=== PATIENT | female | born 1945 | race Caucasian/White ===

== ENCOUNTER 2017-02-27 03:25 | Emergency (ER) | payer MEDICARE ==
[~2017-02-27] VITALS: Ht 162.6 cm; Wt 56.2 kg
[2017-02-27 03:36] VITALS: BP 160/88
[2017-02-27] MEDS ORDERED: HYDR-971 PO (04:29)
--- NOTE | 2017-02-27 04:29 | PHYS DOC ---
Past Medical History Past Medical History: Other Additional Past Medical Histor: CELIAC DISEASE Past Surgical History: Cholecystectomy Alcohol Use: None Drug Use: Marijuana Adult General Chief Complaint Chief Complaint: HIP PAIN [facility] HPI Patient is a 71 year old female who presents with complaint of left hip pain for the past 2 days. The patient states that she accidentally slipped and fell into her bathtub, striking her left hip 2 days ago. Patient states that she was able to ambulate immediately after the injury. Patient states over the past 2 days she has been having worsening tightness and pain. Patient states she's been taking Naprosyn to try to help with symptoms with no significant relief. Patient rates her pain as 7 out of 10 on my examination. Patient states that the pain is located along the posterior lateral aspect of left hip close to her sacrum. Patient denies any other injuries. The patient states that she has pain when she fully extends out her left leg but states that she has normal range of motion in her left hip. Review of Systems Review of Systems Constitutional: Denies fever or chills [] Eyes: Denies change in visual acuity, redness, or eye pain [] HENT: Denies nasal congestion or sore throat [] Respiratory: Denies cough or shortness of breath [] Cardiovascular: No additional information not addressed in HPI [] GI: Denies abdominal pain, nausea, vomiting, bloody stools or diarrhea [] : Denies dysuria or hematuria [] Musculoskeletal: Left hip pain [] Integument: Denies rash or skin lesions [] Neurologic: Denies headache, focal weakness or sensory changes [] Allergies Allergies Allergies Coded Allergies Type Severity Reaction Last Updated Verified No Known Drug Allergies 02/27/17 No Physical Exam Physical Exam Constitutional: Well developed, well nourished, no acute distress, non-toxic appearance. [] HENT: Normocephalic, atraumatic, bilateral external ears normal, oropharynx moist, no oral exudates, nose normal. [] Eyes: PERRLA, EOMI, conjunctiva normal, no discharge. [] Neck: Normal range of motion, no tenderness, supple, no stridor. [] Cardiovascular:Heart rate regular rhythm, no murmur [] Lungs & Thorax: Bilateral breath sounds clear to auscultation [] Abdomen: Bowel sounds normal, soft, no tenderness, no masses, no pulsatile masses. [] Skin: Warm, dry, no erythema, no rash. [] Back: No tenderness, no CVA tenderness. [] Extremities: Left posterior lateral pelvic tenderness along the iliac crest near the sacroiliac junction, no cyanosis, no clubbing, ROM intact, no edema. [ ] Neurologic: Alert and oriented X 3, normal motor function, normal sensory function, no focal deficits noted. [] Current Patient Data Vital Signs Vital Signs Date Time Temp Pulse Resp B/P (MAP) Pulse Ox O2 Delivery O2 Flow Rate FiO2 02/27/17 03:36 98.3 83 18 160/88 (112) 98 Room Air 98.3 EKG EKG Not performed [] Radiology/Procedures Radiology/Procedures Not performed [] Course & Med Decision Making Course & Med Decision Making Pertinent Labs and Imaging studies reviewed. (See chart for details) The patient's symptoms appear consistent with bony contusion of the iliac crest. The patient has normal weightbearing. I have low suspicion for a fracture and thus do not feel that x-rays are indicated at this time. Patient treated with [place] in the emergency department. The patient will be provided with prescription for [place] to improve pain control at home. Advised follow-up in 7-10 days a primary doctor if symptoms are not resolving and return to emergency department for any worsening symptoms. Patient voiced understanding and in agreement with treatment plan. Dragon Disclaimer Dragon Disclaimer This electronic medical record was generated, in whole or in part, using a voice recognition dictation system. Departure Departure Impression: Primary Impression: Contusion of iliac crest Disposition: HOME, SELF-CARE Condition: IMPROVED Referrals: PARAG COLE MD (PCP) Patient Instructions: Contusion Additional Instructions: Follow-up with your primary doctor in 7-10 days of symptoms are not improving. Return to the emergency department for any worsening symptoms. Scripts Hydrocodone/Apap 5-325 (NORCO 5-325 TABLET) 1 Each Tablet 1-2 TAB PO Q4-6HRS, #20 TAB Prov: VASYL TAYLOR MD 02/27/17 Problem Qualifiers Primary Impression: Contusion of iliac crest Encounter type: initial encounter Qualified Codes: S30.1XXA - Contusion of abdominal wall, initial encounter VASYL TAYLOR MD Feb 27, 2017 04:29
[2017-02-27] MEDS ORDERED: HYDROcodone/APAP 5/325MG 1 TAB TABLET PO ONE (04:45)
== END 2017-02-27 04:37 | disposition home or self-care (01) ==
LOC: ER 03:25
DX: S30.1XXA Contusion of abdominal wall, initial encounter (principal); Z90.49 Acquired absence of other specified parts of digestive tract; W18.2XXA Fall in (into) shower or empty bathtub, initial encounter; Y93.89 Activity, other specified; Y99.8 Other external cause status; Y92.89 Other specified places as the place of occurrence of the external cause
CPT/HCPCS: 99284

== ENCOUNTER 2018-01-01 21:16 | Emergency (ER) | payer MEDICARE ==
[2018-01-01] MEDS: HYDROcodone/APAP 5/325MG 1 TAB TABLET PO (22:12)
== END 2018-01-01 23:29 | disposition home or self-care (01) ==
LOC: ER 21:16
DX: S22.31XA Fracture of one rib, right side, initial encounter for closed fracture (principal); F12.10 Cannabis abuse, uncomplicated; Z79.899 Other long term (current) drug therapy; Z90.49 Acquired absence of other specified parts of digestive tract; W01.198A Fall on same level from slipping, tripping and stumbling with subsequent striking against other object, initial encounter; Y93.89 Activity, other specified; Y92.89 Other specified places as the place of occurrence of the external cause; Y99.8 Other external cause status
CPT/HCPCS: 71101; 99284; G0238

== ENCOUNTER 2018-04-03 10:34 | Emergency (ER) | payer MEDICARE ==
[~2018-04-03] VITALS: Ht 162.6 cm; Wt 53.5 kg
[~2018-04-03 10:34] MED LIST: HYDR-971 PO; IBUP-1007 PO
[2018-04-03] MEDS ORDERED: DEXAMETHASONE SOD PHOS 20 MG/5 ML VIAL. IV ONE (11:00)
[2018-04-03] MEDS ORDERED: IV NORMAL SALINE 1000ML BAG 1,000 ML IV ONE (11:00)
[2018-04-03] MEDS ORDERED: IPRATRPIUM/ALBUTEROL 0.5/2.5MG 3 ML NEBU. NEB ONE (11:00)
--- NOTE | 2018-04-03 11:16 | EKG ---
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
[2018-04-03 11:26] LABS: BASO # 0.1 x10^3/uL (0.0-0.2); BASO % 1 % (0-3); EOS # 0.3 x10^3/uL (0.0-0.7); EOS % 4 % (0-3); HEMATOCRIT 45.9 % (36.0-47.0); HEMOGLOBIN 15.7 g/dL (12.0-15.5); LYMPH # 1.2 x10^3/uL (1.0-4.8); LYMPH % 14 % (24-48); MEAN CORPUSCULAR HEMOGLOBIN 31 pg (25-35); MEAN CORPUSCULAR HGB CONC 34 g/dL (31-37); MEAN CORPUSCULAR VOLUME 90 fL (79-100); MONO # 0.7 x10^3/uL (0.0-1.1); MONO % 7 % (0-9); NEUT # 6.5 x10^3uL (1.8-7.7); NEUT % 74 % (31-73); PLATELET COUNT 291 x10^3/uL (140-400); RED BLOOD COUNT 5.08 x10^6/uL (3.50-5.40); RED CELL DISTRIBUTION WIDTH 15.5 % (11.5-14.5); WHITE BLOOD COUNT 8.8 x10^3/uL (4.0-11.0)
[2018-04-03 11:48] LABS: ALBUMIN 3.3 g/dL (3.4-5.0); ALBUMIN/GLOBULIN RATIO 0.8 (1.0-1.7); CREATININE 1.2 mg/dL (0.6-1.0); GFR 44.2; TOTAL BILIRUBIN 0.8 mg/dL (0.2-1.0); TOTAL PROTEIN 7.4 g/dL (6.4-8.2)
[2018-04-03 11:55] LABS: POTASSIUM 2.9 mmol/L (3.5-5.1)
--- NOTE | 2018-04-03 12:18 | RAD ---
Examination: CHEST PA LATERAL History: COUGH, SHORT OF BREATH, DOESN'T FEEL WELL Comparison/Correlation: None Findings: PA and lateral views of chest were obtained. Heart size and pulmonary vasculature are normal. No infiltrate or pleural effusion. No pneumothorax. Borderline pulmonary hyperinflation evident. Left fifth rib fracture posterolaterally is present but of indeterminate age. Impression: No infiltrate. Borderline pulmonary hyperinflation. Correlate for possibility of COPD. Electronically signed by: Arsh Zuleta MD (04/03/2018 12:14 PM) [id number]
[2018-04-03] MEDS ORDERED: POTASSIUM CHLORIDE 20 MEQ TABLET.ER. PO ONE (13:15)
[2018-04-03] MEDS ORDERED: POTA20TA82 PO (13:29)
[2018-04-03] MEDS ORDERED: PRED20TA PO (13:29)
--- NOTE | 2018-04-03 13:29 | PHYS DOC ---
Past Medical History Past Medical History: Anxiety, Asthma, Dementia, Other Additional Past Medical Histor: CELIAC DISEASE,FALL/RIB FX'S Past Surgical History: Cholecystectomy Alcohol Use: None Drug Use: Marijuana Adult General Chief Complaint Chief Complaint: SHORTNESS OF BREATH HPI HPI Patient is a 73 year old [f__sex] who presents with [] Review of Systems Review of Systems Constitutional: Denies fever or chills [] Eyes: Denies change in visual acuity, redness, or eye pain [] HENT: Denies nasal congestion or sore throat [] Respiratory: Denies cough or shortness of breath [] Cardiovascular: No additional information not addressed in HPI [] GI: Denies abdominal pain, nausea, vomiting, bloody stools or diarrhea [] : Denies dysuria or hematuria [] Musculoskeletal: Denies back pain or joint pain [] Integument: Denies rash or skin lesions [] Neurologic: Denies headache, focal weakness or sensory changes [] Endocrine: Denies polyuria or polydipsia [] All other systems were reviewed and found to be within normal limits, except as documented in this note. Current Medications Current Medications Current Medications Medications (Trade) Dose Ordered Sig/Ambrose Start Time Stop Time Status Last Admin Dose Admin Albuterol/ Ipratropium (Duoneb) 3 ml 1X ONCE 04/03/18 11:00 04/03/18 11:03 DC 04/03/18 11:17 3 ML Dexamethasone Sodium Phosphate (Decadron) 10 mg 1X ONCE 04/03/18 11:00 04/03/18 11:03 DC 04/03/18 12:01 10 MG Potassium Chloride (Klor-Con) 40 meq 1X ONCE 04/03/18 13:15 04/03/18 13:16 DC Sodium Chloride 1,000 ml @ 1,000 mls/hr 1X ONCE 04/03/18 11:00 04/03/18 11:59 DC 04/03/18 12:01 1,000 MLS/HR Allergies Allergies Allergies Coded Allergies Type Severity Reaction Last Updated Verified No Known Drug Allergies 02/27/17 No Physical Exam Physical Exam Constitutional: Well developed, well nourished, no acute distress, non-toxic appearance. [] HENT: Normocephalic, atraumatic, bilateral external ears normal, oropharynx moist, no oral exudates, nose normal. [] Eyes: PERRLA, EOMI, conjunctiva normal, no discharge. [] Neck: Normal range of motion, no tenderness, supple, no stridor. [] Cardiovascular:Heart rate regular rhythm, no murmur [] Lungs & Thorax: Bilateral breath sounds clear to auscultation [] Abdomen: Bowel sounds normal, soft, no tenderness, no masses, no pulsatile masses. [] Skin: Warm, dry, no erythema, no rash. [] Back: No tenderness, no CVA tenderness. [] Extremities: No tenderness, no cyanosis, no clubbing, ROM intact, no edema. [] Neurologic: Alert and oriented X 3, normal motor function, normal sensory function, no focal deficits noted. [] Psychologic: Affect normal, judgement normal, mood normal. [] Current Patient Data Vital Signs Vital Signs Date Time Temp Pulse Resp B/P (MAP) Pulse Ox O2 Delivery O2 Flow Rate FiO2 04/03/18 11:18 96 Room Air 04/03/18 10:42 98.8 61 20 163/118 (133) 98.8 Lab Values Laboratory Tests Test 04/03/18 11:15 White Blood Count 8.8 x10^3/uL (4.0-11.0) Red Blood Count 5.08 x10^6/uL (3.50-5.40) Hemoglobin 15.7 g/dL (12.0-15.5) H Hematocrit 45.9 % (36.0-47.0) Mean Corpuscular Volume 90 fL (79-100) Mean Corpuscular Hemoglobin 31 pg (25-35) Mean Corpuscular Hemoglobin Concent 34 g/dL (31-37) Red Cell Distribution Width 15.5 % (11.5-14.5) H Platelet Count 291 x10^3/uL (140-400) Neutrophils (%) (Auto) 74 % (31-73) H Lymphocytes (%) (Auto) 14 % (24-48) L Monocytes (%) (Auto) 7 % (0-9) Eosinophils (%) (Auto) 4 % (0-3) H Basophils (%) (Auto) 1 % (0-3) Neutrophils # (Auto) 6.5 x10^3uL (1.8-7.7) Lymphocytes # (Auto) 1.2 x10^3/uL (1.0-4.8) Monocytes # (Auto) 0.7 x10^3/uL (0.0-1.1) Eosinophils # (Auto) 0.3 x10^3/uL (0.0-0.7) Basophils # (Auto) 0.1 x10^3/uL (0.0-0.2) Sodium Level 141 mmol/L (136-145) Potassium Level 2.9 mmol/L (3.5-5.1) *L Chloride Level 103 mmol/L (98-107) Carbon Dioxide Level 24 mmol/L (21-32) Anion Gap 14 (6-14) Blood Urea Nitrogen 19 mg/dL (7-20) Creatinine 1.2 mg/dL (0.6-1.0) H Estimated GFR (Cockcroft-Gault) 44.2 BUN/Creatinine Ratio 16 (6-20) Glucose Level 114 mg/dL (70-99) H Calcium Level 10.0 mg/dL (8.5-10.1) Total Bilirubin 0.8 mg/dL (0.2-1.0) Aspartate Amino Transferase (AST) 26 U/L (15-37) Alanine Aminotransferase (ALT) 26 U/L (14-59) Alkaline Phosphatase 140 U/L (46-116) H Creatine Kinase 106 U/L (26-192) Creatine Kinase MB (Mass) 2.6 ng/mL (0.0-3.6) Creatine Kinase MB Relative Index 2.5 % (0-4) Troponin I Quantitative < 0.017 ng/mL (0.000-0.055) AP-Vnw-N-Type Natriuretic Peptide 167 pg/mL (0-124) H Total Protein 7.4 g/dL (6.4-8.2) Albumin 3.3 g/dL (3.4-5.0) L Albumin/Globulin Ratio 0.8 (1.0-1.7) L Laboratory Tests 04/03/18 11:15 Laboratory Tests 04/03/18 11:15 EKG EKG @1048: sinus tachycardia at 112bpm, No ST elevation, wandering baseline, slight ST depression II, V3-V4 Radiology/Procedures Radiology/Procedures PROCEDURE: CHEST PA & LATERAL Examination: CHEST PA LATERAL History: COUGH, SHORT OF BREATH, DOESN'T FEEL WELL Comparison/Correlation: None Findings: PA and lateral views of chest were obtained. Heart size and pulmonary vasculature are normal. No infiltrate or pleural effusion. No pneumothorax. Borderline pulmonary hyperinflation evident. Left fifth rib fracture posterolaterally is present but of indeterminate age. Impression: No infiltrate. Borderline pulmonary hyperinflation. Correlate for possibility of COPD. Electronically signed by: Arsh Zuleta MD (04/03/2018 12:14 PM) [id number] Course & Med Decision Making Course & Med Decision Making Pertinent Labs and Imaging studies reviewed. (See chart for details) [] Dragon Disclaimer Dragon Disclaimer This electronic medical record was generated, in whole or in part, using a voice recognition dictation system. Departure Departure Impression: Primary Impression: COPD exacerbation Additional Impression: Hypokalemia Disposition: 01 HOME, SELF-CARE Condition: IMPROVED Referrals: PARAG COLE MD (PCP) Patient Instructions: Chronic Obstructive Pulmonary Disease Exacerbation, Easy- to-Read, Hypokalemia-Brief Additional Instructions: Please call and make appointment with your doctor to get your potassium rechecked. Scripts Potassium Chloride (POTASSIUM CHLORIDE) 20 Meq Tablet.er 20 MEQ PO DAILY for 5 Days, #5 TAB.SR Prov: RUBY MARTINEZ DO 04/03/18 Prednisone (PREDNISONE) 20 Mg Tablet 2 TAB PO DAILY, #8 TAB Start on Mon04/04/18 Prov: RUBY MARTINEZ DO 04/03/18 Problem Qualifiers RUBY MARTINEZ DO Apr 03, 2018 13:29
[2018-04-03 14:01] VITALS: BP 159/92
[2018-04-06] MEDS ORDERED: ASPI81TA50 PO (23:01)
[2018-04-06] MEDS ORDERED: SIMV5TAB5 PO (23:01)
[2018-04-06] MEDS ORDERED: COLE1TAB PO (23:03)
[2018-04-09] MEDS ORDERED: METO25TA4 PO (12:38)
[2018-04-09] MEDS ORDERED: LACT1CAP19 PO (12:38)
[2018-04-09] MEDS ORDERED: DOXY100C14 PO (12:38)
[2018-04-09] MEDS ORDERED: CHOL200059 PO (12:41)
[2018-04-09] MEDS ORDERED: CYAN500L4 SL (12:41)
== END 2018-04-03 14:05 | disposition home or self-care (01) ==
LOC: ER 10:34
DX: J44.1 Chronic obstructive pulmonary disease with (acute) exacerbation (principal); E87.6 Hypokalemia; F41.9 Anxiety disorder, unspecified; Z90.49 Acquired absence of other specified parts of digestive tract
CPT/HCPCS: 36415; 71046; 80053; 82553; 83880; 84484; 85025; 93005; 94640; 96374; 99285; J1100; J7030; J7620; 96361

== ENCOUNTER 2019-09-25 16:19 | Emergency (ER) | payer MEDICARE ==
[~2019-09-25] VITALS: Ht 165.1 cm; Wt 45.0 kg
[~2019-09-25 16:19] MED LIST changes: +ASPI81TA50 PO; +CHOL200059 PO; +COLE1TAB PO; +CYAN500L4 SL; +DOXY100C14 PO; +HYDR-3164 PO; -HYDR-971 PO; +LACT1CAP19 PO; +METO25TA4 PO; +POTA20TA4 PO; +PRED20TA PO; +SIMV5TAB14 PO
[2019-09-25] MEDS ORDERED: LIDOCAINE 1% Multi-Dose 20 ML VIAL. ONE (16:36)
[2019-09-25] MEDS ORDERED: LIDOCAINE 1%/EPI 1:100,000 20 ML VIAL. ONE (16:37)
[2019-09-25] MEDS ORDERED: TETANUS AND DIPHTHERIA TOX/PF 0.5 ML DISP.SYRIN. VAX IM ONE (17:00)
--- NOTE | 2019-09-25 17:03 | PHYS DOC ---
Past Medical History Past Medical History: Anxiety, Asthma, COPD, Dementia, Other Additional Past Medical Histor: CELIAC DISEASE,FALL/RIB FX'S Past Surgical History: Cholecystectomy Smoking Status: Former Smoker Alcohol Use: None Drug Use: Marijuana Adult General Chief Complaint Chief Complaint: MULTIPLE TRAUMA/FALL HPI HPI 74-year-old female presenting to the emergency department today after a fall with head injury. The patient had a mechanical fall and hit the right side of her head from standing. She started bleeding and so she put a paper towel over it however she was unable to stop the bleeding. She denies any other injuries. She denies having neck pain. She came in with active venous bleeding from the wound. Onset today. Location head. Duration constant. Not alleviated by pre ssure. Review of systems negative for chest pain shortness of breath abdominal pain vomiting fevers chills. All other ROS is negative unless otherwise noted. ED course: 74-year-old female sustained a head injury with a 3 cm laceration to the forehead which was sutured in the emergency department by nonabsorbable sutures. See procedure note. Head CT negative. On reexamination the patient is feeling much better. We will discharge her to follow-up with her PCP in 1 to 2 days for reexamination. She will need her sutures taken out in about 7 days. She is not on any blood thinners. Review of Systems Review of Systems All other review of systems is negative unless otherwise noted in history of present illness. Current Medications Current Medications Current Medications Medications (Trade) Dose Ordered Sig/Ambrose Start Time Stop Time Status Last Admin Dose Admin Tetanus/ Diphtheria Toxoids (Tenivac Syringe) 0.5 ml ONCE ONCE 09/25/19 17:00 09/25/19 17:02 DC Allergies Allergies Allergies Coded Allergies Type Severity Reaction Last Updated Verified No Known Drug Allergies 02/27/17 No Physical Exam Physical Exam SEE ABOVE. Constitutional: Well developed, well nourished, no acute distress, non-toxic appearance. [] HENT: Normocephalic, atraumatic, bilateral external ears normal, oropharynx moist, no oral exudates, nose normal. [] Eyes: PERRLA, EOMI, conjunctiva normal, no discharge. [] Neck: Normal range of motion, no tenderness, supple, no stridor. [] Cardiovascular:Heart rate regular rhythm, no murmur [] Lungs & Thorax: Bilateral breath sounds clear to auscultation [] Abdomen: Bowel sounds normal, soft, no tenderness, no masses, no pulsatile masses. [] Skin: Warm, dry, no erythema, no rash. [] Back: No tenderness, no CVA tenderness. [] Extremities: No tenderness, no cyanosis, no clubbing, ROM intact, no edema. [] Neurologic: Alert and oriented X 3, normal motor function, normal sensory function, no focal deficits noted. [] Psychologic: Affect normal, judgement normal, mood normal. [] Current Patient Data Vital Signs Vital Signs Date Time Temp Pulse Resp B/P (MAP) Pulse Ox O2 Delivery O2 Flow Rate FiO2 09/25/19 16:30 98.4 126 20 145/85 (105) 98 Room Air 98.4 EKG EKG [] Radiology/Procedures Radiology/Procedures [] Course & Med Decision Making Course & Med Decision Making Pertinent Labs and Imaging studies reviewed. (See chart for details) [] Dragon Disclaimer Dragon Disclaimer This electronic medical record was generated, in whole or in part, using a voice recognition dictation system. Departure Departure Impression: Primary Impression: Laceration of head Disposition: HOME, SELF-CARE Condition: STABLE Referrals: PARAG COLE MD (PCP) Patient Instructions: Facial Laceration Laceration Repair Lac Repair Indication: right forehead laceration Procedure: The patient was placed in the appropriate position and anesthesia around the right forehead 4ml of 1 % lido with epi injected into the wound. The area was then cleaned using saline and 4x4. The laceration was closed using simple interrupted technique. 6 sutures placed. No foreign bodies were found prior to the laceration closure on inspection of the wound. There was substantial venous bleeding which was controlled with the lighted with epinephrine and the sutures. Sutures were placed prior to head CT due to the amount of bleeding. We attempted pressure however the bleeding continued so we needed to suture the wound. The wound area was left open. Total repaired wound length: 3cm. Other Items: none The patient tolerated the procedure well. Complications: none. YAAKOV ROJAS MD Sep 25, 2019 17:03
--- NOTE | 2019-09-25 17:28 | RAD ---
Exam: CT head and cervical spine without contrast INDICATION: Head injury TECHNIQUE: Sequential axial images through the head and cervical spinal were obtained without the administration of IV contrast. Comparisons: None FINDINGS: Head: No focal parenchymal lesion or hemorrhage is identified. There is no midline shift or sulcal effacement. Patchy hypodensity within the periventricular white matter. No acute vascular territory infarction is identified. Quarles-white distinction is preserved. The ventricular system is within normal limits without compression hydrocephalus. The basal cisterns are well maintained. Extra cranial soft tissue scalp contusion overlying the right frontal region. The visualized portions of the paranasal sinuses and mastoid air cells are well-pneumatized. No acute fractures. Cervical spine: Straightening of the cervical spine which may positional. Vertebral body heights are well-maintained. Fracture to the cervical spine is not identified. Multilevel spondylotic change in the cervical spine with degenerative disc throughout the cervical spine. Mild bilateral facet arthropathy is also noted. Visualized paraspinal soft tissues are unremarkable. IMPRESSION: 1. Extra cranial soft tissue scalp contusion/laceration in the right frontal region without underlying osseous or intracranial abnormality. 2. Negative CT C-spine for acute traumatic Exposure: One or more of the following in the visualized dose reduction techniques were utilized for this examination: 1. Automated exposure control 2. Adjustment of the MA and/or KV according to patient size Use of iterative of reconstructive technique Electronically signed by: Markus Mosley MD (09/25/2019 5:24 PM) [id number]
[2019-09-25 17:47] VITALS: BP 122/77
== END 2019-09-25 18:05 | disposition home or self-care (01) ==
LOC: ER 16:19
DX: S01.81XA Laceration without foreign body of other part of head, initial encounter (principal); J44.9 Chronic obstructive pulmonary disease, unspecified; F03.90 Unspecified dementia, unspecified severity, without behavioral disturbance, psychotic disturbance, mood disturbance, and anxiety; Z87.891 Personal history of nicotine dependence; W18.09XA Striking against other object with subsequent fall, initial encounter; Y93.89 Activity, other specified; Y92.89 Other specified places as the place of occurrence of the external cause; Y99.8 Other external cause status
CPT/HCPCS: 12013; 70450; 72125; 90471; 90714; 99285-25

== ENCOUNTER 2020-02-19 11:42 | Emergency (ER) | payer MEDICARE ==
[~2020-02-19] VITALS: Ht 162.6 cm; Wt 45.0 kg
[2020-02-19 12:04] VITALS: BP 135/69
[2020-02-19] MEDS ORDERED: CLIN300C8 PO (12:14)
--- NOTE | 2020-02-19 12:14 | PHYS DOC ---
Past Medical History Past Medical History: Anxiety, Asthma, COPD, Dementia, Other Additional Past Medical Histor: CELIAC DISEASE,FALL/RIB FX'S Past Surgical History: Cholecystectomy Smoking Status: Current Every Day Smoker Alcohol Use: None Drug Use: Marijuana General Adult EDM: Chief Complaint: UPPER EXTREMITY INJURY HPI: HPI: Patient is a 74-year-old female who fell a couple weeks ago had a skin tear on her right forearm. She has been doctoring it at home with peroxide and some ointment and dressings she states that it started to heal but now she is noticed some redness on her right forearm. She denies any increased pain. She denies any fever chills or sweats. She denies any significant swelling. [] Review of Systems: Review of Systems: Constitutional: Denies fever or chills. [] Eyes: Denies change in visual acuity. [] HENT: Denies nasal congestion or sore throat. [] Respiratory: Denies cough or shortness of breath. [] Cardiovascular: Denies chest pain or edema. [] GI: Denies abdominal pain, nausea, vomiting, bloody stools or diarrhea. [] : Denies dysuria. [] Musculoskeletal: Denies back pain or joint pain. [] Integument: Per HPI. [] Neurologic: Denies headache, focal weakness or sensory changes. [] Endocrine: Denies polyuria or polydipsia. [] Lymphatic: Denies swollen glands. [] Psychiatric: Denies depression or anxiety. [] Heart Score: Risk Factors: Risk Factors: DM, Current or recent (<one month) smoker, HTN, HLP, family hi story of CAD, obesity. Risk Scores: Score 0 - 3: 2.5% MACE over next 6 weeks - Discharge Home Score 4 - 6: 20.3% MACE over next 6 weeks - Admit for Clinical Observation Score 7 - 10: 72.7% MACE over next 6 weeks - Early Invasive Strategies Allergies: Allergies: Allergies Coded Allergies Type Severity Reaction Last Updated Verified No Known Drug Allergies 02/27/17 No Physical Exam: PE: Constitutional: Frail, elderly but no acute distress and does not appear acutely ill [] HENT: Normocephalic, atraumatic, bilateral external ears normal, oropharynx moist, no oral exudates, nose normal. [] Eyes: PERRLA, EOMI, conjunctiva normal, no discharge. [] Neck: Normal range of motion, no tenderness, supple, no stridor. [] Cardiovascular:Heart rate regular rhythm, no murmur [] Lungs & Thorax: Bilateral breath sounds clear to auscultation [] Abdomen: Bowel sounds normal, soft, no tenderness, no masses, no pulsatile masses. [] Skin: Warm, dry, no erythema, no rash. [] Back: No tenderness, no CVA tenderness. [] Extremities: Right forearm appears to have healing skin tear but it is macerated and erythematous no obvious abscess. [] Neurologic: Alert and oriented X 3, normal motor function, normal sensory function, no focal deficits noted. [] Psychologic: Affect normal, judgement normal, mood normal. [] EKG: EKG: [] Radiology/Procedures: Radiology/Procedures: [] Course & Med Decision Making: Course & Med Decision Making Pertinent Labs and Imaging studies reviewed. (See chart for details) [] Dragon Disclaimer: Dragon Disclaimer: This electronic medical record was generated, in whole or in part, using a voice recognition dictation system. Departure Departure Impression: Primary Impression: Cellulitis of right forearm Disposition: HOME, SELF-CARE Condition: STABLE Referrals: PARAG COLE MD (PCP) Patient Instructions: Cellulitis Additional Instructions: Take antibiotics as directed. Return to the emergency department with any new or concerning symptoms Scripts Clindamycin Hcl (CLINDAMYCIN HCL) 300 Mg Capsule 1 CAP PO TID for Infection, #30 CAP Prov: RAGHAV ESCOBAR DO 02/19/20 Justicifation of Admission Dx: Justifications for Admission: Justification of Admission Dx: No RAGHAV ESCOBAR DO Feb 19, 2020 12:14
== END 2020-02-19 12:17 | disposition home or self-care (01) ==
LOC: ER 11:42
DX: S51.811A Laceration without foreign body of right forearm, initial encounter (principal); L03.113 Cellulitis of right upper limb; J44.9 Chronic obstructive pulmonary disease, unspecified; F03.90 Unspecified dementia, unspecified severity, without behavioral disturbance, psychotic disturbance, mood disturbance, and anxiety; F17.200 Nicotine dependence, unspecified, uncomplicated; W18.39XA Other fall on same level, initial encounter; Y93.89 Activity, other specified; Y92.89 Other specified places as the place of occurrence of the external cause; Y99.8 Other external cause status
CPT/HCPCS: 99284

== ENCOUNTER → 2021-07-13 | Outpatient (CLI) | payer MEDICARE ==
[2021-07-01 15:00] VITALS: BP 139/81
[~2021-07-13] MED LIST changes: +ASPI325T11 PO; +ATOR10TA60 PO; +CLIN-94 PO; +DOXY-181 PO; -DOXY100C14 PO
--- NOTE | 2021-07-14 08:37 | CARD ---
MR#: [id number] Date of Study: 07/13/2021 Ordering Physician: TESS JIN, Referring Physician: TESS JIN, Tech: APPROVED REPORT PROCEDURE: Successful implantation of Medtronic reveal Linq loop recorder INDICATIONS: Stroke of uncertain etiology r/o atrial fibrillation PROCEDURE DETAILS: An informed consent was obtained from patient. Patient was brought to the procedure suite and her le ft chest and shoulder were prepped and draped in the usual fashion. 20 mL of 2% lidocaine was infilt rated into the skin and subcutaneous tissues for local anesthesia. An incision was made in the left third intercostal space 1 inch from midsternal line and using the introducer and deploy provided with the kit, a Medtronic reveal Linq loop recorder serial number [id number] was placed in the subcutaneo us tissue. Hemostasis was secured. Patient tolerated the procedure well. There were no immediate c omplications. CONCLUSION: Successful implantation of Medtronic reveal Linq loop recorder for stroke of uncertain etiology to ru le out any significant arrhythmias. Signed by : Tess Jin, Electronically Approved : 07/14/2021 08:37:19
== END | disposition home or self-care (01) ==
LOC: LINQ 11:40
PROVIDERS: ATTEND Internal Medicine Cardiovascular Disease
DX: I63.9 Cerebral infarction, unspecified (principal); I10 Essential (primary) hypertension; E78.00 Pure hypercholesterolemia, unspecified; J44.9 Chronic obstructive pulmonary disease, unspecified; M19.90 Unspecified osteoarthritis, unspecified site; F17.210 Nicotine dependence, cigarettes, uncomplicated; Z86.73 Personal history of transient ischemic attack (TIA), and cerebral infarction without residual deficits; Z79.82 Long term (current) use of aspirin; Z79.899 Other long term (current) drug therapy; Z98.890 Other specified postprocedural states
CPT/HCPCS: 33285; C1764